=== PATIENT | female | born 1985 | race Caucasian/White ===

== ENCOUNTER 2018-04-01 09:18 | Outpatient (CLI) | payer OTHER, SELFPAY | END 2018-04-01 10:55 | disposition home or self-care (01) | LOC: WPOUT 09:25 → WP 09:27 | PROVIDERS: Visit Provider Registered Nurse | DX: O92.79 Other disorders of lactation (principal) | CPT/HCPCS: 96152 ==

== ENCOUNTER 2023-07-06 09:18 | Inpatient (IN) | payer BC, SELFPAY ==
[2023-07-06] VITALS (16 sets, daily range): BP systolic 104–117; BP diastolic 56–77; PULSE 64–99; RESP 14–18; TEMP 36.5–36.9; O2SAT 97–100; BMI 27.3
[2023-07-06] MEDS: Lactated Ringers 1,000 ML 999 ML IV (09:45)
[2023-07-06 10:03] LABS: Absolute Lymphocyte Count 1.55 X10^3/uL (0.83-4.51); Absolute Neutrophil Count 7.7 X10^3/uL (2.0-7.7); Basophil# 0.02 X10^3/uL; Basophil% 0.2 % (0-1); Hematocrit 35.2 % (37-47); Lymphocyte # 1.55 X10^3/ul (0.83-4.51); Lymphocyte % 15.3 % (19-41); Mean Corp Hgb Conc 34.1 g/dL (32-36); Mean Corpuscular Hgb 32.2 pg (27.0-32.0); Mean Corpuscular Volume 94.4 fL (81-99); Mean Platelet Vol. 9.4 fl (6.2-12.0); Monocyte# 0.74 X10^3/uL; Monocyte% 7.3 % (0-10); NRBC Flagged by Analyzer 0 % (0-5); Neutrophil # 7.65 X10^3/uL (2.7-7.7); Neutrophil % 75.8 % (47-70); Platelet Count 307 K/mm3 (150-450); RBC Distribution Width CV 13.5 % (11.6-14.6); RBC Distribution Width SD 45.5 fl (35.1-43.9); Red Blood Count 3.73 M/mm3 (4.2-5.4); White Blood Count 10.1 K/mm3 (4.4-11.0)
[2023-07-06 10:34] LABS: Syphilis Antibodies Non-reactive
[2023-07-06] MEDS: Acetaminophen 500 MG Tablet 1000 MG PO ×2 (10:42→18:14)
[2023-07-06] MEDS: Lactated Ringers 1,000 ML 150 ML IV (10:42)
[2023-07-06] MEDS: Sodium Citrate/Citric Acid 30 ML UDC PO (11:45)
--- NOTE | 2023-07-06 11:55 | PCM.HP.OB ---
HPI - General General Date of Admission: 07/06/23 Date of Service: 07/06/23 HPI Narrative SCOT CARR, is a 38 F who presents for . Maternal Data Information Final RONNY: 07/10/23 Gestational age: 39&3 PFSH PFSH Medical History (Updated 07/06/23 @ 11:[address] Chela Foster MD) Anxiety Chronic GERD Depression Liver lesion, right lobe Panic attack depression Uterine fibroid Home Medications vits no.130-ferrous fum 27 mg iron-folic acid 800 mcg tablet ( Vitamin) 1 tab PO DAILY 07/06/23 [History Last Taken 07/05/23] Allergy/AdvReac Type Severity Reaction Status Date / Time No Known Allergies Allergy Verified 07/06/23 09:25 Family History Grandmother Breast cancer Surgical History (Updated 07/06/23 @ 11:[address] Chela Foster MD) H/O inguinal hernia repair Previous section Social History Smoking Status: Never smoker History Elective abortions Hx Para 2 Spontaneous abortions Hx # Term Pregnancies Ectopic pregnancies Hx # Pregnancies Multiple births # of living children Vital Signs Vital Signs Vital Signs: 07/06/23 10:34 Temperature 98.5 F Temperature Source Temporal Pulse Rate 78 Respiratory Rate 14 Blood Pressure 113/77 Blood Pressure Mean 89 Blood Pressure Source Monitor Blood Pressure Position Semi-Fowlers Blood Pressure Location Right Arm Pulse Ox 98 Oxygen Delivery Method Room Air Weight Weight: 154 lb 8 oz Body Mass Index (BMI) 27.3 Labs Labs Labs: Blood Type A POSITIVE Antibody Screen NEGATIVE Hct 35.2 % (37-47) L Hgb 12.0 g/dL (12.0-15.0) Syphilis Total Ab Non-reactive See [facility] H&P Assessment & Plan (1) Previous section: COMMENT: @39&3 (2) AMA (advanced maternal age) multigravida 35+: QUALIFIERS: Trimester: third trimester Qualified Code(s): O09.523 - Supervision of elderly multigravida, third trimester PLAN: Plan Admit to L&D MOD - repeat . Informed consent signed. GBS positive Routine care
[2023-07-06] MEDS: Cefazolin 2 GM in 0.9% Normal Saline (100mL Bag) 100 ML IV (12:10)
--- NOTE | 2023-07-06 13:08 | EX.PCM.OBRPT ---
Maternal Data Information Final RONNY: 07/10/23 Gestational age: 39&3 Details Operative Information Date of Procedure: 07/06/23 Pre-Operative Diagnosis: (1) Prior section Post-Operative Diagnosis: Same Indications for : Repeat Elective Indications Narrative: The patient was taken to the operating room where spinal anesthesia was placed & found to be adequate. She was prepped and draped in the dorsal supine position with a leftward tilt. A Pfannenstiel skin incision was made approximately 2 cm above the symphysis pubis and carried through to the underlying fascia with the scalpel. The fascia was incised incised in the midline and extended laterally with the Hernández scissors. The rectus muscles were in the midline and the peritoneum was entered carefully and bluntly. The peritoneal incision was stretched and the bladder blade was inserted. Vesicouterine peritoneum was tented up, incised & then bladder flap created gently. The uterine incision was made in a low transverse fashion with the scalpel and extended superiorly and inferiorly with blunt dissection. The 's head was brought to the incision in the flexed position and delivered without difficulty. The head was gently guided to allow delivery of the anterior and posterior shoulders. The body then delivered with fundal pressure in the standard fashion. The 3VC cord was clamped and cut in delayed fashion. The was handed off to the waiting hospice nurse practitioner. The placenta was delivered with fundal massage and gentle traction in the standard fashion. The uterus was exteriorized and cleared of clots and debris. The uterine incision was closed with #1 Vicryl suture in a running locked fashion. Monocryl suture was used in an imbricating fashion. The incision was examined and was found to be hemostatic. The uterus was returned to the abdominal cavity. After irrigating Kierra was placed over the uterine incision as some areas were denuded (but hemostatic). The rectus muscle was examined and any bleeding was Bovie cauterized. The fascia was closed with PDS suture in a running standard fashion. The subcutaneous tissue was examining and any bleeding was Bovie cauterized. The subcutaneous tissue was reapproximated with interrupted sutures. The skin was closed in a subcuticular fashion by the FAMILY PRESERVATION WORKER while I was present in the labor & delivery unit. The remainder of the procedure was performed by me with assistance. All sponge, lap, and needle counts were correct. The patient was taken to her room for recovery in a stable condition. Classification: Scheduled Procedure Type: low transverse director executive communications #1: Kaykay Gonzalez Type of Anesthesia: Spinal Antibiotic Given: Ancef 2 grams IV x1 Drain: Raygoza to straight drain Estimated Blood Loss: 800ml Fluids Replaced: 1000ml Procedure Start Time: 12:30 Procedure Stop Time: 13:15 Findings Description of Procedure: Normal maternal uterus and adnexa Presentation: Positive for Vertex Amniotic Membrane Rupture Type: Artificial Amniotic Fluid Description: Clear Placental Delivery Description: Manual Removal Placenta Disposition: [facility] Specimen(s) Sent to Pathology: none Cord Vessel Description: 3 Vessels Cord Entanglement: None A Gender: Male (1 minute): 8 (5 minute): 9 Delayed Cord Clamping: Yes Complications Complications: none
[2023-07-06] MEDS: Oxytocin 15 Units/NS 250ml 15 UNITS/250 ML IV.SOLN 83 UNITS IV (13:30)
[2023-07-06] MEDS: Ketorolac 30 MG/ML Syringe IV ×2 (14:02→20:03)
[2023-07-06] MEDS: Lactated Ringers 1,000 ML 100 ML IV (16:27)
--- NOTE | 2023-07-06 20:06 | NURSING ---
pt declined mmr vaccine at this time.
--- NOTE | 2023-07-06 23:47 | NURSING ---
pt ambulated to door and tolerated well.
[2023-07-07 00:33] VITALS: BP 112/70; PULSE 78; RESP 17; TEMP 36.4; O2SAT 99
[2023-07-07] MEDS: Enoxaparin 40 MG/0.4 ML Syringe SC (00:37)
[2023-07-07] MEDS: Acetaminophen 500 MG Tablet 1000 MG PO ×4 (00:37→19:20)
[2023-07-07] MEDS: 0.9% Saline Lock 10 ML Syringe IV ×2 (02:30→09:18)
[2023-07-07] MEDS: Ketorolac 30 MG/ML Syringe IV ×2 (02:30→09:18)
[2023-07-07 04:30] VITALS: BP 107/66; PULSE 70; RESP 16; TEMP 36.8; O2SAT 97
[2023-07-07 06:11] LABS: Hematocrit 29.5 % (37-47); Hemoglobin 9.8 g/dL (12.0-15.0); Mean Corp Hgb Conc 33.2 g/dL (32-36); Mean Corpuscular Hgb 31.8 pg (27.0-32.0); Mean Corpuscular Volume 95.8 fL (81-99); Mean Platelet Vol. 9.6 fl (6.2-12.0); Platelet Count 271 K/mm3 (150-450); RBC Distribution Width CV 13.2 % (11.6-14.6); RBC Distribution Width SD 45.9 fl (35.1-43.9); Red Blood Count 3.08 M/mm3 (4.2-5.4); White Blood Count 12.7 K/mm3 (4.4-11.0)
--- NOTE | 2023-07-07 08:20 | PN_ITS ---
Subjective Subjective patient seen at bedside, doing well. Patient reports good pain control. lochia mild. denies CP, SOB, dizziness. Voiding w/o difficulty. No flatus yet. Tolerating regular diet. Pt requesting possible dc home later today if baby is cleared. Objective Data Objective Data Vital Signs: Vital Signs Temp Pulse Resp BP Pulse Ox O2 Del Method 98.2 F 70 16 107/66 97 Room Air 07/07/23 04:30 07/07/23 04:30 07/07/23 04:30 07/07/23 04:30 07/07/23 04:30 07/07/23 04:30 Oxygen Delivery Method Room Air Weight: 70.08 kg Body Mass Index (BMI) 27.3 Intake & Output: Intake and Output for Last 24 Hours 07/05/23 07/06/23 07/07/23 23:59 23:59 23:59 Intake Total 2122.33 / 2122.33 Output Total 2225 / 2225 1000 / 1000 Balance -102.67 / -102.67 -1000 / -1000 Lab / Micro Data 07/07/23 06:05 Labs: Laboratory Results - last 24 hr 07/06/23 09:45: WBC 10.1, RBC 3.73 L, Hgb 12.0, Hct 35.2 L, MCV 94.4, MCH 32.2 H , MCHC 34.1, RDW Std Deviation 45.5 H, RDW Coeff of Daina 13.5, Plt Count 307, MPV 9.4, Immature Gran % (Auto) 0.400, Neut % (Auto) 75.8 H, Lymph % (Auto) 15.3 L, [place] % (Auto) 7.3, Eos % (Auto) 1.0, Baso % (Auto) 0.2, Absolute Neuts (auto) 7.7, Absolute Lymphs (auto) 1.55, Nucleated RBC % 0, Syphilis Total Ab Non- reactive, Blood Type A POSITIVE, Antibody Screen NEGATIVE 07/07/23 06:05: WBC 12.7 H, RBC 3.08 L, Hgb 9.8 L, Hct 29.5 L, MCV 95.8, MCH 31.8, MCHC 33.2, RDW Std Deviation 45.9 H, RDW Coeff of Daina 13.2, Plt Count 271, MPV 9.6 Physical Exam Narrative Abd: fundus firm. Dressing dry and intact. Const alert and oriented x3 General Appearance: cooperative HEENT normocephalic Neck General: normal visual inspection GI soft to palpation and non-distended GI Narrative: Fundus firm Extremity normal to inspection and no calf tenderness Skin no rashes or lesions noted Neuro oriented x3 and CN's II-XII intact bilaterally Psych mental status grossly normal Assessment & Plan Assessment/Plan (1) Previous section: (2) AMA (advanced maternal age) multigravida 35+: QUALIFIERS: Trimester: third trimester Qualified Code(s): O09.523 - Supervision of elderly multigravida, third trimester (3) Acute blood loss anemia: PLAN: Plan POD# 1 , Doing well Routine care pain mgmt monitor VS ambulation anemia- start iron PO possible dc home today total time spent face to face on day of discharge was <30min
--- NOTE | 2023-07-07 08:23 | DCINST_ITS ---
Discharge Instructions Diet Discharge Diet: No restrictions Activity May resume sexual activity in: 6-8 weeks Lifting Restrictions: 25 Dressing / Incision Call your doctor if your incision/area has: Continuous Slow Oozing, Sudden Increased Bleeding, Increased Pain/ Swelling, Increased Redness, Foul Smelling Discharge and Swelling at the incision site Call your doctor if you observe: Fever of 101 or Higher, Inability to urinate, Using more than 1 pad per hour and Uncontrolled pain Additional Dressing/Incision Instructions:: remove dressing at 7 days post op- if it becomes saturated prior to that time you may remove it. Let soap and water run over incision sites and dab dry. keep incision clean and dry. Follow Up Care Please Follow Up With: Janet Andres MD When: 1-2 weeks post of incision check and again at 6 weeks post . [phone] Test Results: Test results from this visit will be discussed in further detail at your follow- up appointment, if applicable. Discharge Plan Admission Admit Date/Time: 07/06/23 09:18 Attending Provider: Chela Foster Discharge Orders/Prescriptions Prescriptions: No Action Vitamin 27 mg iron- 800 mcg tablet 1 tab PO DAILY Disposition Disposition (needs filled in before D/C Order can be placed): Home, Self Care
--- NOTE | 2023-07-07 08:24 | DCINST_ITS ---
Discharge Instructions Diet Discharge Diet: No restrictions Activity May resume sexual activity in: 6-8 weeks Dressing / Incision Call your doctor if your incision/area has: Continuous Slow Oozing, Sudden Increased Bleeding, Increased Pain/ Swelling, Increased Redness, Foul Smelling Discharge and Swelling at the incision site Call your doctor if you observe: Fever of 101 or Higher, Inability to urinate, Using more than 1 pad per hour and Uncontrolled pain Additional Dressing/Incision Instructions:: remove dressing at 7 days post op- if it becomes saturated prior to that time you may remove it. Let soap and water run over incision sites and dab dry. keep incision clean and dry. Follow Up Care Please Follow Up With: Janet Andres MD Test Results: Test results from this visit will be discussed in further detail at your follow- up appointment, if applicable. Discharge Plan Admission Admit Date/Time: 07/06/23 09:18 Attending Provider: Chela Foster Discharge Orders/Prescriptions Prescriptions: New acetaminophen 500 mg Tablet 1,000 mg PO Q6 Qty: 0 0RF ibuprofen 600 mg Tablet 600 mg PO Q6H Qty: 0 0RF Continued Vitamin 27 mg iron- 800 mcg tablet 1 tab PO DAILY Disposition Disposition (needs filled in before D/C Order can be placed): Home, Self Care
[2023-07-07 09:10] VITALS: BP 126/77; PULSE 78; RESP 18; TEMP 36.6; O2SAT 97
[2023-07-07] MEDS: Senna/Docusate Sodium 1 Tablet PO (09:17)
[2023-07-07] MEDS: Ferrous Sulfate 325 MG Tablet PO (12:08)
--- NOTE | 2023-07-07 12:26 | CASEMGMT ---
Social Work Assessment Labor and Delivery Unit Patient Address:[address] [place] [address] [place] [address] Phone number: [phone] Date of Referral: 07/06/23 Time of Referral:? 1429 Referred By: Chela Foster Date of Intervention: ?07/07/23 Time of Intervention:? 1100 Reason for Referral:? Father of patient was an alcoholic Sw completed chart review and acknowledges social work consult due to father of patient was an alcoholic. Sw presented to bedside and introduced self to mother of baby (MOB- Mariam) and father of baby (FOB- Vernon). Sw explained reason for sw involvement. Sw completed psychosocial assessment and asked FOB to step out momentarily so that MOB could complete [place] Depression Scale. FOB did so willingly and respectfully. History obtained from: medical records, MOB and FOB. ??? Household composition: ALEXUS states that currently at her residence it is just her and baby. ALEXUS states that she also gets her other two children some of the time. Patient's parent/guardian status:? ALEXUS is legally still , but formally from her . MOB and FOFloridalma have been together for a year, and unexpectedly got withi baby. MOB states that they met at work. MOB has two other children from her marriage (Max, 5 years old, Titi, 2 years old). FOB states that he has three other children who are 18, 24, and 30. baby is first child for parents together. While meeting with ALEXUS privately, she denies any concerns of domestic violence or intimate partner violence. Medical History: ALEXUS is 38 year old, female who is 3, para 2- now 3. ALEXUS received routine [facility] with [facility] during . ALEXUS delivered baby via on 07/06/23. Baby boy, named Castro, was born weighing 7lb 9oz and his apgars were 8 and 9 at one and five minutes of life respectfully. ALEXUS was observed holding baby and caring for him appropriately. ALEXUS is and reports that this is going well. Educational Status:?Both parents report they have some college education, but no degrees Financial Status: Both parents are gainfully employed outside of the home. They work at [employer]. MOB states that she is able to take the full 12 weeks off for maternity leave. FOB states that because they are not , he is only able to use some vacation time now that baby has been born. Supplies:??ALEXUS states that she has obtained all necessary baby items including: car seat, safe sleep space, clothes, diapers, wipes and a breast pump. Childcare/Caregiver(s):?While ALEXUS is on maternity leave she will be the primary caregiver to baby. When both parents are at work they will rely on family and other childcare providers to watch baby. Transportation:?? Parents have drivers license and reliable transportation. No transportation barriers at this time. Programs/Agencies Involved: MOB states that they have questions about doing paternity testing. Sw explained that they need to go to the Child Support Agency in [place] and request that a paternity test be done. Ree explained that because ALEXUS is legally her 's name has to go on certificate, however once paternity is established with FOB, MOB's the Health Dept will redo the certificate and put FOFloridalma's name on it. MOB and FOB expressed understanding. ??? Children Services/Legal Issues:??? MOB denies former involvement. NO issues or concerns at this time warranting a referral to be made. Behavioral Health Issues: ??Mental Health History: ASHLEY denies mental health history. ALEXUS states that she has depression and anxiety at baseline. ALEXUS reports that she did experience depression following the of her other children. MOB states that at that time she was mostly depressed. Sw asked MOB and FOB if they are aware of signs and symptoms of baby blues and to look out for. MOB said that she does and FOB nodded his head. Sw met with MOB privately and asked more detailed questions. ALEXUS completed [place] Depression Scale and her score was a 16. ALEXUS stated that she believes that FOB will be a good support person for her. MOB stated that she and FOB have talked about ways that he can support her during her period should she struggle with the blues/ . Sw encouraged MOB to get connected to mental health supports as well including a counselor or a psychiatrist. ALEXUS stated that prior to she was taking effexor and wellbutrin. ALEXUS states that she has tried lots of medications over the years and does not feel as though any of them really helped. ??? Substance Use History: MOB denies substance use history. ?? Family History:??MOB reporst that she does have a parent with history of alcoholism, however baby will never be in his care. ??? Drug Screens: ?No urine screens observed in chart review. Family/Social Stressors:?ALEXUS reports that the biggest stressor at this time is her separation from her , and working on pursuing and finalizing her divorce. Support Systems: MOB states that her mom is her biggest support person. FOB reports that his dad and his sister are supportive. FOB reports that at this time the relationships with his children are strained due to the relationship he has with MOB and the fact that they had a baby. Sw provided support. Depression/Shaken Baby/Safe Sleeping:?Sw educated parents on signs and symptoms of baby blues and depression/ anxiety. Sw provided literature for parents to review. Sw encouraged MOB to get connected to counseling services and psychiatry during this period. Parents expressed understanding. Sw informed MOB on shaken baby prevention and ABCs of safe sleep. MOB expressed understanding. ASSESSMENT:? ALEXUS is hospitalized due to delivery of baby boy. MOB and FOB have been together for one year, this is their first child together. MOB and FOB participated in psychosocial assessment together. MOB was observed to care for baby in loving manner. MOB and FOB had appropriate questions regarding getting paternity testing done. Parents were receptive to sw involvement and support, but were also reserved and did not elaborate on answering assessment questions asked. PLAN:? MOB and baby to be discharged when medically ready. ?No other services requested or indicated. Margi Mcdermott, HOSPITAL PHARMACIST, INTERNATIONAL LOGISTICS ANALYST
[2023-07-07] MEDS: Ibuprofen 600 MG Tablet PO (16:40)
[2023-07-07 19:38] VITALS: BP 131/82; PULSE 79; RESP 18
== END 2023-07-07 19:50 | disposition home or self-care (01) | DRG 787 ==
PROVIDERS: Admitting Provider Obstetrics & Gynecology; Visit Provider Obstetrics & Gynecology
PROC: 10D00Z1 Extraction of Products of Conception, Low, Open Approach (ICD-10-PCS; CPT 59514; principal; 2023-07-06 11:45)
DX: O34.219 Maternal care for unspecified type scar from previous cesarean delivery (principal); D62 Acute posthemorrhagic anemia; O99.824 Streptococcus B carrier state complicating childbirth; O90.81 Anemia of the puerperium; Z37.0 Single live birth; Z3A.39 39 weeks gestation of pregnancy
CPT/HCPCS: 59025; 59050; 85025; 85027; 86780; 86850; 86900; 86901; 99221; J7120; A4216; G0378; J2405